=== PATIENT | female | born 1995 | race Caucasian/White ===

== ENCOUNTER 2021-01-30 11:30 | Outpatient (REF) | payer OTHER, SELFPAY | END 2021-01-30 11:31 | disposition home or self-care (01) | LOC: HO.LAB 11:30 | PROVIDERS: Visit Provider Internal Medicine | DX: Z20.822 Contact with and (suspected) exposure to COVID-19 (principal) | CPT/HCPCS: C9803; U0003; U0005 ==

== ENCOUNTER 2021-07-14 10:17 | Emergency (ER) | payer OTHER, SELFPAY ==
--- NOTE | ~2021-07-14 | US_ITS ---
EXAMINATION: US ABDOMEN LIMITED CLINICAL INFORMATION: Right upper quadrant pain. COMPARISON: None TECHNIQUE: Real-time imaging of the gallbladder FINDINGS: The gallbladder is normal in size. No gallstones are seen. The gallbladder wall is normal. There is no pericholecystic fluid. Common bile duct is normal in caliber measuring 0.2 cm. US/US abdomen limited IMPRESSION: Normal gallbladder.
[2021-07-14 10:49] VITALS: BP 111/69; PULSE 90; RESP 18; TEMP 36.7; O2SAT 99; BMI 22.1
[2021-07-14 10:54] VITALS: BP 111/69; PULSE 90; RESP 16; TEMP 36.7; O2SAT 97
[2021-07-14] MEDS: Magnesium Hydrox/Alum Hydrox 30 ML ORAL.SUSP PO (11:47)
[2021-07-14 12:14] LABS: MANUAL DIFF FLAG NO
[2021-07-14 12:20] LABS: Basophils Percent Auto 0.3 % (0-2); Eosinophils Percent Auto 0.6 % (0-4); Hematocrit 35.1 % (37.0-47.0); Hemoglobin 11.6 g/dl (12.0-16.0); Imm Gran Abs Auto 0.02 X10*3/uL (0.00-0.03); Imm Gran Pct Auto 0.3 % (0.0-0.4); Lymphocytes Absolute Auto 1.8 X10*3/uL (1.2-4.9); Lymphocytes Percent Auto 25.3 % (20-40); Mean Corpuscular Hemoglobin 28.3 pg (27.0-33.0); Mean Corpuscular Volume 85.6 fL (80.0-98.0); Mean Platelet Volume 9.8 fL (9.4-12.3); Monocytes Absolute Auto 0.4 X10*3/uL (0.1-1.2); Monocytes Percent Auto 6.1 % (2-11); Neutrophils Absolute Auto 4.9 x10*3/uL (2.0-8.3); Neutrophils Percent Auto 67.4 % (45-73); Platelet Count 267 X10*3/uL (160-400); Red Cell Distribution Width 13.5 % (11.0-16.0); White Blood Count 7.2 X10*3/uL (4.8-10.8)
[2021-07-14 12:34] LABS: Alanine Aminotransferase 20 U/L (0-31); Albumin Level 3.7 g/dL (3.5-5.0); Alkaline Phosphatase 63 U/L (39-117); Anion Gap 12 (12-20); Aspartate Amino Transferase 21 U/L (5-31); Bilirubin Direct < 0.2 mg/dL (0.0-0.5); Bilirubin Total 0.2 mg/dL (0.0-1.0); Blood Urea Nitrogen 5 mg/dL (9-16); Carbon Dioxide 24 mmol/L (22-29); Chloride 108 mmol/L (96-108); Creatinine Clr Calc Pharmacy 118.7; Estimated Glomerular Filt Rate > 60; Glucose Random 94 mg/dL (60-115); Lipase 18 U/L (8-78); Potassium 3.6 mmol/L (3.3-5.1); Sodium 140 mmol/L (135-145); Total Protein 6.6 g/dL (6.5-8.0)
--- NOTE | 2021-07-14 12:34 | ED.ABDPAIN ---
HPI - Abdominal Pain General Chief Complaint: Abdominal Pain Stated Complaint: Abd pain Time Seen by Provider: 07/14/21 11:08 Source: patient Mode of arrival: ambulatory History of Present Illness HPI narrative: 25-year-old female with no significant past medical history presenting to the ED complaining of mid abdominal pain / cramping intermittently x1 week. Admits to associated nausea and diarrhea. Admits symptoms worse after eating. Denies fever, chills, vomiting, constipation, dysuria/ hematuria, vaginal bleeding / discharge MD elicited complaint: abdominal pain Onset (ago): week(s) Related Data Allergies Allergy/AdvReac Type Severity Reaction Status Date / Time Penicillins [PENICILLINS] Allergy Unknown RASH Unverified 11/22/19 16:37 Review of Systems Review of Systems Constitutional: No Fever, No Chills, No Fatigue, No Malaise ENT/Mouth: No Ear Pain, No Nasal Congestion, No Sinus Pain, No sore throat, No Rhinorrhea, No Swallowing Difficulty Eyes: No Eye Pain, No Swelling, No Redness, No Foreign Body, No Discharge, No Vision Changes Cardiovascular: No Chest Pain, No SOB, No Edema, No Palpitations Respiratory: No Cough, No Dyspnea Gastrointestinal: + Nausea, No Vomiting, No Diarrhea, No Constipation, + Abdominal pain Genitourinary: No irregular bleeding, No Dysuria, No Urinary Frequency, No Hematuria, No Urinary Incontinence/retention, No Flank Pain Musculoskeletal: No joint pain, No Myalgias, No Joint Swelling Skin: No Skin Lesions, No rash Neuro: No Weakness, No Dizziness, No Headache Yes all other systems are reviewed and are negative [facility] Past Medical History Attestation statement: The following information was validated with the patient. Social History Social History Advance Directives: No Advance Directives Information Provided: No Physical Exam ED Vital Signs: Vital Signs - 24 hr 07/14/21 10:49 07/14/21 10:54 Temperature 98.0 F 98.0 F Pulse Rate 90 90 Respiratory Rate 18 16 Blood Pressure 111/69 111/69 Pulse Oximetry 99 97 BMI result Body Mass Index 22.1 Const General: cooperative, healthy appearing and no acute distress Orientation/consciousness: patient oriented x3 Limitations: no limitations HENMT Head: Yes normal to inspection and Yes atraumatic Ears: hearing grossly normal bilaterally General nose exam: Normal external nose present Face and sinus: Yes normal facial exam Eyes General: appearance normal, both eyes and all related structures EOM: EOMs intact bilaterally Neck Neck: Yes normal visual inspection and Yes no meningeal signs Resp Effort & Inspection: normal respiratory effort and no respiratory distress Auscultation: clear to auscultation bilaterally Cardio Rate: regular rate Heart sounds: S1 normal heart sound present and S2 normal heart sound present GI Inspection: Yes normal to inspection Palpation (GI): Soft to palpation, Tenderness to palpation present (GI) in the RUQ, no guarding and not rigid General: Yes no CVA tenderness Back/Spine/Pelvis Back: no CVA tenderness Skin Rashes: no rashes Wounds: no wounds Neuro General: patient oriented x3, tone normal and no meningeal signs Gait exam (Neuro): Normal gait present Extrem General: Yes normal to inspection Course Course Course Narrative: - no leukocytosis. Labs otherwise unremarkable. US abdomen limited IMPRESSION: Normal gallbladder. >> results discussed with patient including worrisome signs and symptoms and strict return precautions and need to follow-up with PCP. She verbalized understanding feel safe discharge home MDM - Abdominal Pain MDM Narrative Medical decision making narrative: 25-year-old female with no significant past medical history presenting to the ED complaining of mid abdominal pain / cramping intermittently x1 week. on exam vital signs stable, NAD/ nontoxic appearing, abdomen soft with RUQ tenderness, no rebound or guarding no CVA tenderness. Concern for cholelithiasis vs cholecystitis vs pancreatitis. Lower concern for renal stone/pyelo, UTI, appendicitis or diverticulitis Plan: Labs, UA, , ultrasound Differential Diagnosis Differential diagnosis: Likely abdominal pain and pancreatitis Medical Records Attestation: I reviewed the patient's medical records. Lab Data Attestation: I reviewed the patient's lab results. Result diagrams: 07/14/21 12:09 07/14/21 12:09 Labs: Lab Results 07/14/21 07/14/21 Range/Units 12:09 12:09 WBC 7.2 (4.8-10.8) X10*3/uL RBC 4.10 L (4.20-5.50) X10*6/uL Hgb 11.6 L (12.0-16.0) g/dl Hct 35.1 L (37.0-47.0) % MCV 85.6 (80.0-98.0) fL MCH 28.3 (27.0-33.0) pg MCHC 33.0 (31.0-35.0) g/dl RDW 13.5 (11.0-16.0) % Plt Count 267 (160-400) X10*3/uL MPV 9.8 (9.4-12.3) fL Immature Gran % (Auto) 0.3 (0.0-0.4) % Neut % (Auto) 67.4 (45-73) % Lymph % (Auto) 25.3 (20-40) % Hardeman % (Auto) 6.1 (2-11) % Eos % (Auto) 0.6 (0-4) % Baso % (Auto) 0.3 (0-2) % Lymph # (Auto) 1.8 (1.2-4.9) X10*3/uL Hardeman # (Auto) 0.4 (0.1-1.2) X10*3/uL Eos # (Auto) 0.0 (0.0-0.4) X10*3/uL Baso # (Auto) 0.0 (0.0-0.2) X10*3/uL Abs Immat Gran (auto) 0.02 (0.00-0.03) X10*3/uL Absolute Neuts (auto) 4.9 (2.0-8.3) x10*3/uL Absolute Nucleated RBC 0.000 (0.0-0.012) X10*3/uL Nucleated RBC % (auto) 0.0 (0.0-0.2) /100WBC Sodium 140 (135-145) mmol/L Potassium 3.6 (3.3-5.1) mmol/L Chloride 108 (96-108) mmol/L Carbon Dioxide 24 (22-29) mmol/L Anion Gap 12 (12-20) BUN 5 L (9-16) mg/dL Creatinine 0.69 (0.5-1.4) mg/dL Estim Creat Clear Calc 118.7 Estimated GFR > 60 Random Glucose 94 (60-115) mg/dL Calcium 9.0 (8.4-10.2) mg/dL Total Bilirubin 0.2 (0.0-1.0) mg/dL Direct Bilirubin < 0.2 (0.0-0.5) mg/dL AST 21 (5-31) U/L ALT 20 (0-31) U/L Alkaline Phosphatase 63 (39-117) U/L Total Protein 6.6 (6.5-8.0) g/dL Albumin 3.7 (3.5-5.0) g/dL Lipase 18 (8-78) U/L Discharge Plan Discharge Clinical Impression: Abdominal pain Qualifiers: Abdominal location: right upper quadrant Qualified Code(s): R10.11 - Right upper quadrant pain Patient Disposition: Home, Self-Care Instructions: Abdominal Pain (ED) Additional Instructions: your blood work and ultrasound were unremarkable. It is very important to follow-up with her primary care doctor. Zofran as antinausea take as needed. If symptoms persist or worsen, pain becomes constant or unbearable, or you have persistent nausea or vomiting please return to the ED Referrals: Physician,None [Primary Care Provider] - 5 days
[2021-07-14 13:30] VITALS: BP 108/66; PULSE 81; RESP 16; TEMP 36.8; O2SAT 99
[2021-07-14] MEDS: Ondansetron ODT 4 MG TAB.RAPDIS TRANSLINGU (13:33)
== END 2021-07-14 13:38 | disposition home or self-care (01) ==
PROVIDERS: Physician Assistant; Emergency Provider Emergency Medicine
DX: R10.11 Right upper quadrant pain (principal); Z79.899 Other long term (current) drug therapy
CPT/HCPCS: 36415; 76705; 80048; 80076; 83690; 85025; 99284

== ENCOUNTER 2022-03-07 12:34 | Emergency (ER) | payer OTHER, SELFPAY ==
[2022-03-07 12:42] VITALS: BP 126/71; PULSE 100; RESP 19; TEMP 36.6; O2SAT 99; BMI 19.0
--- NOTE | 2022-03-07 12:43 | ED.GENADULT ---
HPI - General Adult General Chief complaint: Upper Respiratory Symptoms <ROSA Remy - Last Filed: 03/07/22 12:43> Stated complaint: sore throat <ROSA Remy - Last Filed: 03/07/22 12:43> Time Seen by Provider: 03/07/22 12:49 <ROSA Remy - Last Filed: 03/07/22 12:43> Source: patient <Cheryl Ramirez NP - Last Filed: 03/07/22 14:20> Mode of arrival: ambulatory <Cheryl Ramirez NP - Last Filed: 03/07/22 14:20> Limitations: no limitations <ANNETTE Horta Last Filed: 03/07/22 14:20> History of Present Illness HPI narrative: 26-year-old female previously healthy, up-to-date with immunizations here with 2 days of sore throat and headache. No fevers, cough, difficulty swallowing, difficulty breathing, chest pain, headache, neck pain or neck stiffness, skin rash. <ANNETTE Horta Last Filed: 03/07/22 14:20> Related Data Home medications: Previous Rx's Medication Instructions Recorded ondansetron 4 mg disintegrating 4 mg PO Q8H 4 days #12 tabs 07/14/21 tablet azithromycin 250 mg tablet See Rx Instructions PO .COMPLEX #6 03/07/22 tabs <ROSA Remy - Last Filed: 03/07/22 12:43> Allergies/adverse reactions: Allergies Allergy/AdvReac Type Severity Reaction Status Date / Time Penicillins [PENICILLINS] Allergy Unknown RASH Unverified 11/22/19 16:37 <ROSA Remy - Last Filed: 03/07/22 12:43> Review of Systems Review of Systems: Yes all other systems are reviewed and are negative <ANNETTE Horta Last Filed: 03/07/22 14:20> Constitutional: Constitutional: Reports no additional constitutional complaints, Denies body ache(s), Denies chills, Denies fever(s), Reports headache(s) and Denies weakness <ANNETTE Horta Last Filed: 03/07/22 14:20> Eyes: Eyes: Reports no additional eye complaints and Denies change in vision <Cheryl Ramirez NP - Last Filed: 03/07/22 14:20> ENT: Reports system reviewed and no additional complaints, except as documented, Denies dizziness, Reports headache(s), Denies nasal congestion, Denies nasal discharge, Denies neck pain and Reports sore throat <Cheryl Ramirez [employer]ICE - Last Filed: 03/07/22 14:20> Cardiovascular: Cardiovascular: Reports no additional cardiovascular complaints, Denies chest pain, Denies leg edema and Denies dyspnea <Cheryl Ramirez [employer]ICE - Last Filed: 03/07/22 14:20> Respiratory: Respiratory: Reports no additional respiratory complaints, Denies cough and Denies dyspnea <Cheryl Ramirez NP - Last Filed: 03/07/22 14:20> Gastrointestinal: Gastrointestinal: Reports no additional gastrointestinal complaints, Denies abdominal pain, Denies diarrhea, Denies nausea and Denies vomiting <Cheryl Ramirez NP - Last Filed: 03/07/22 14:20> Genitourinary: Genitourinary: Reports no additional female genitourinary complaints and Denies urinary incontinence <Cheryl Ramirez NP - Last Filed: 03/07/22 14:20> Musculoskeletal: Musculoskeletal: Reports no additional musculoskeletal complaints, Denies back pain, Denies arthralgias, Denies joint swelling, Denies neck pain, Denies numbness and Denies tingling <Cheryl Ramirez NP - Last Filed: 03/07/22 14:20> Integumentary/Breasts: Skin/Breast: Reports system reviewed and no additional complaints, except as docu and Denies rash <Cheryl Ramirez NP - Last Filed: 03/07/22 14:20> Neurologic: Reports system reviewed and no additional complaints, except as documented, Denies dizziness, Reports headache(s), Denies numbness, Denies tingling and Denies weakness <Cheryl Ramirez NP - Last Filed: 03/07/22 14:20> PMFSH Past Medical History Attestation statement: The following information was validated with the patient. <Cheryl Ramirez NP - Last Filed: 03/07/22 14:20> Source: old records reviewed and nursing notes reviewed <Cheryl Ramirez NP - Last Filed: 03/07/22 14:20> Social History Social History: Social History Advance Directives: No Advance Directives Information Provided: Yes <ROSA Remy - Last Filed: 03/07/22 12:43> Physical Exam ED Vital Signs: Vital Signs - 24 hr 03/07/22 12:42 Temperature 98 F Pulse Rate 100 Respiratory Rate 19 Blood Pressure 126/71 Pulse Oximetry 99 Oxygen Delivery Method Room Air BMI result Body Mass Index 19.0 <ROSA Remy - Last Filed: 03/07/22 12:43> Vital Signs - 24 hr 03/07/22 12:42 Temperature 98 F Pulse Rate 100 Respiratory Rate 19 Blood Pressure 126/71 Pulse Oximetry 99 Oxygen Delivery Method Room Air BMI result Body Mass Index 19.0 <Cheryl Ramirez NP - Last Filed: 03/07/22 14:20> Const General: cooperative, healthy appearing, comfortable and no acute distress <Cheryl Ramirez NP - Last Filed: 03/07/22 14:20> Orientation/consciousness: patient oriented x3 <Cheryl Ramirez NP - Last Filed: 03/07/22 14:20> Limitations: no limitations <Cheryl Ramirez NP - Last Filed: 03/07/22 14:20> HENMT Head: Yes normal to inspection <Cheryl Ramirez NP - Last Filed: 03/07/22 14:20> Ears: hearing grossly normal bilaterally and TM's normal bilaterally <Cheryl Ramirez NP - Last Filed: 03/07/22 14:20> General nose exam: Normal external nose present <Cheryl Ramirez NP - Last Filed: 03/07/22 14:20> Throat: Yes posterior oropharynx normal, Yes uvula midline, Yes abnormal tonsil (slight erythema/swelling bilateral. No exudate) and No peritonsillar mass <Cheryl Ramirez NP - Last Filed: 03/07/22 14:20> Eyes General: appearance normal, both eyes and all related structures <Cheryl Ramirez NP - Last Filed: 03/07/22 14:20> Pupils: Equal, round and reactive pupils present <Cheryl Ramirez NP - Last Filed: 03/07/22 14:20> Neck Neck: Yes normal visual inspection, Yes full ROM, Yes no lymphadenopathy and Yes no meningeal signs <Cheryl Ramirez NP - Last Filed: 03/07/22 14:20> Chest Chest palpation & inspection: normal inspection of the chest <Cheryl Ramirez NP - Last Filed: 03/07/22 14:20> Resp Effort & Inspection: normal respiratory effort <Cheryl Ramirez NP - Last Filed: 03/07/22 14:20> Cardio Peripheral pulses: Peripheral pulses 2+ throughout <Cheryl Ramirez NP - Last Filed: 03/07/22 14:20> GI Inspection: Yes normal to inspection <Cheryl Ramirez NP - Last Filed: 03/07/22 14:20> Skin General skin exam: no rashes or lesions noted <Cheryl Ramirez NP - Last Filed: 03/07/22 14:20> Neuro General: patient oriented x3 and no meningeal signs <Cheryl Ramirez NP - Last Filed: 03/07/22 14:20> Cranial nerves: Yes Equal, round and reactive pupils present <Cheryl Ramirez NP - Last Filed: 03/07/22 14:20> Cognition (Neuro): normal cognition <Cheryl Ramirez NP - Last Filed: 03/07/22 14:20> Course Course Course Narrative: RME performed by Noemi Awad PA-C. Patient is a 26 year old female presenting to the emergency department with a sore throat. Swabs ordered. Patient placed back in the waiting room pending results and room availability. <ROSA Remy Last Filed: 03/07/22 12:43> Reevaluation(s) Reevaluation #1: Strep screen positive. No evidence of peritonsillar abscess on exam. No swelling this suggest Dez's angina. Patient tolerating secretions with no difficulty. Patient be discharged home with course of antibiotics. Reviewed worrisome signs and symptoms of when to return to the emergency room. Comfortable plan for discharge home. <Cheryl Ramirez NP - Last Filed: 03/07/22 14:20> Medical Decision Making Medical Decision Making [facility] Narrative: 26-year-old female here with 2 days of sore throat and headache. Vitals stable Mild erythema and swelling to posterior oropharynx with no evidence of exudate or peritonsillar abscess. Uvula is midline. Patient tolerating secretions Will send testing for strep, flu, COVID, RSV <Cheryl Ramirez NP - Last Filed: 03/07/22 14:20> Differential Diagnosis Differential Diagnoses: The differential diagnosis associated with the presentation includes <Cheryl Ramirez NP - Last Filed: 03/07/22 14:20> Viral syndrome, strep pharyngitis, peritonsillar abscess, Dez's angina <Cheryl Ramirez NP - Last Filed: 03/07/22 14:20> Lab Data [facility] Lab Attestation statement: I reviewed the patient's lab results. <Cheryl Ramirez NP - Last Filed: 03/07/22 14:20> Labs: Lab Results 03/07/22 03/07/22 Range/Units 12:47 12:47 Influenza Type A (PCR) NEGATIVE (Negative) Influenza Type B (PCR) NEGATIVE (Negative) RSV RNA Qual (PCR) NEGATIVE (Negative) SARS-CoV-2 RNA (RT-PCR) NEGATIVE (Negative) S. pyogenes GrpA BALTAZAR Positive A (Negative) <ROSA Remy - Last Filed: 03/07/22 12:43> Lab Results 03/07/22 03/07/22 Range/Units 12:47 12:47 Influenza Type A (PCR) NEGATIVE (Negative) Influenza Type B (PCR) NEGATIVE (Negative) RSV RNA Qual (PCR) NEGATIVE (Negative) SARS-CoV-2 RNA (RT-PCR) NEGATIVE (Negative) S. pyogenes GrpA BALTAZAR Positive A (Negative) <Cheryl Ramirez NP - Last Filed: 03/07/22 14:20> Prescription Management I considered prescription management with: Antibiotic <Cheryl Ramirez NP - Last Filed: 03/07/22 14:20> Strep screen positive. Patient with allergy to penicillin so will prescribe azithromycin for 5 days. <Cheryl Ramirez NP - Last Filed: 03/07/22 14:20> Discharge Plan Discharge Clinical Impression: Pharyngitis <ROAS Remy - Last Filed: 03/07/22 12:43> Patient Disposition: Home, Self-Care <ROSA Remy - Last Filed: 03/07/22 12:43> Instructions: Pharyngitis (ED) <ROSA Remy - Last Filed: 03/07/22 12:43> Additional Instructions: Testing for strep throat was positive Testing for flu, COVID, RSV are negative Take Motrin or Tylenol for pain or fever Increase fluids, rest <ROSA Remy - Last Filed: 03/07/22 12:43> Prescriptions: New azithromycin 250 mg tablet See Rx Instructions .ROUTE .COMPLEX Qty: 6 0RF Rx Instructions: For 250 mg dose pack: take 500 mg today (day 1), then 250 mg for 4 days (days 2-5) No Action ondansetron 4 mg tablet,disintegrating 4 mg PO Q8H 4 Days Qty: 12 0RF <ROSA Remy - Last Filed: 03/07/22 12:43> Referrals: Physician,Unknown J [Primary Care Provider] - <ROSA Remy - Last Filed: 03/07/22 12:43> Interventions: ED Discharge Assessment Last Done: 03/07/22 14:04 <ROSA Remy - Last Filed: 03/07/22 12:43> Discharge Date/Time: 03/07/22 14:04 <ROSA Remy - Last Filed: 03/07/22 12:43>
[2022-03-07 12:58] LABS: IDNOW Serial# 6674DD1D; Strep A Nucleic Acid Positive (Negative)
[2022-03-07 13:48] LABS: Influenza A PCR NEGATIVE (Negative); Influenza B PCR NEGATIVE (Negative); Resp Syncy Virus RNA Qual PCR NEGATIVE (Negative); SARS COV2 PCR INHOUSE NEGATIVE (Negative)
== END 2022-03-07 14:04 | disposition home or self-care (01) ==
PROVIDERS: Physician Assistant Medical; Emergency Provider Emergency Medicine
DX: J02.8 Acute pharyngitis due to other specified organisms (principal); R51.9 Headache, unspecified; Z20.822 Contact with and (suspected) exposure to COVID-19; Z79.899 Other long term (current) drug therapy
CPT/HCPCS: 0241U; 87651; 99282

== ENCOUNTER 2022-10-24 12:33 | Emergency (ER) | payer OTHER, SELFPAY ==
[2022-10-24 12:53] VITALS: BP 125/71; PULSE 76; RESP 18; TEMP 36.6; O2SAT 100; BMI 19.4
--- NOTE | 2022-10-24 12:58 | ED_ITS ---
HPI - Female Genitourinary General Chief complaint: Urogenital-Female Stated complaint: ? UTI Time Seen by Provider: 10/24/22 13:52 Source: patient Mode of arrival: ambulatory Limitations: no limitations History of Present Illness HPI Narrative: Patient is a 27-year-old female presenting to the emergency department with dysuria and hematuria since this morning, reports also has nausea and vomited once this morning. Denies fevers. Denies any abdominal, back, flank pain. Denies any abnormal vaginal discharge, denies concern for STIs. MD elicited complaint: dysuria Onset (ago): hour(s) Vaginal discharge: none Vaginal bleeding: none Urinary symptoms: Dysuria and Hematuria Exacerbating factors: urination Relieving factors: none Associated symptoms: vomiting Treatment prior to arrival: none Sexual activity: Yes Patient : No Related Data Previous Rx's Medication Instructions Recorded ondansetron 4 mg disintegrating 4 mg PO Q8H PRN nausea and 04/08/22 tablet vomiting #30 tabs nitrofurantoin macrocrystal 100 mg 100 mg PO BID #10 caps 10/24/22 capsule ondansetron 4 mg disintegrating 4 mg PO Q8H PRN nausea and 10/24/22 tablet vomiting #10 tabs Allergies Allergy/AdvReac Type Severity Reaction Status Date / Time Penicillins [PENICILLINS] Allergy Unknown RASH and Unverified 04/08/22 11:21 SWELLING, including skin and throat Review of Systems Review of Systems: As per HPI. Yes all other systems are reviewed and are negative Constitutional: Constitutional: Reports as per HPI [facility] Past Medical History Medical History (Updated 10/24/22 @ 14:29 by Heike aPrker NP) No pertinent past medical history Surgical History (Updated 04/08/22 @ 11:21 by Kishan Peters MD) No pertinent past surgical history Family History Family History (Updated 04/08/22 @ 11:22 by Kishan Peters MD) Mother Gestational diabetes Social History Social History (Updated 04/08/22 @ 11:22 by Kishan Peters MD) Alcohol intake: never Patient Tobacco Use Status: Never used Tobacco Advance Directives: No Advance Directives Information Provided: No Patient : No Physical Exam Vital Signs: Vital Signs: Last Vital Signs Temp 97.9 F 10/24/22 12:53 Pulse 76 10/24/22 12:53 Resp 18 10/24/22 12:53 BP 125/71 10/24/22 12:53 Pulse Ox 100 10/24/22 12:53 O2 Del Method Room Air 10/24/22 12:53 BMI result Body Mass Index 19.4 Vital signs have been reviewed and appear to be correct. Blood pressure normal. Heart rate normal. Respiratory rate normal. Temperature normal. Oxygen saturation normal. Const: General: cooperative, healthy appearing and no acute distress Orientation/consciousness: oriented to person, oriented to place, oriented to time and patient oriented x3 Limitations: no limitations HEENT: Head: Yes normocephalic and Yes atraumatic Ears: external ears normal General nose exam: Normal external nose present Face and sinus: Yes face symmetric Mouth: oropharynx normal and moist mucous membranes Throat: Yes uvula midline Eyes: Pupils: Equal, round and reactive pupils present Neck: Neck: Yes normal visual inspection and Yes supple Resp: Effort & Inspection: normal respiratory effort and able to speak in complete sentences Auscultation: clear to auscultation bilaterally Cardio: Rate: regular rate Rhythm: regular rhythm Heart sounds: S1 normal heart sound present and S2 normal heart sound present GI: Palpation (GI): Soft to palpation and nontender Auscultation: normoac tive bowel sounds : General: Yes no CVA tenderness Back/Spine/Pelvis: Back: no CVA tenderness Skin: General skin exam: elasticity normal and turgor normal Neuro: General: oriented to person, oriented to place, oriented to time, patient oriented x3, moves all extremities, no focal motor deficits and CN's II- XI intact bilaterally Cranial nerves: Yes Equal, round and reactive pupils present Cognition (Neuro): normal cognition Extrem: General: Yes full ROM, Yes no pedal edema and Yes no calf tenderness Psych: Mental Status: mental status grossly normal Affect: normal affect Thought process: Normal thought process present Course Course Course Narrative: RME: 27 yold female presents to the ED for dysuria and slight hematuria. patient states no flank pain. uA, urpreg ordered Medical Decision Making Medical Decision Making MDM Narrative: Patient is a 27-year-old female presenting to the emergency department with dysuria and hematuria since this morning, reports also has nausea and vomited once this morning. On exam patient is awake, A+Ox3, VS WNL, afebrile, nontoxic appearing, normal neurological exam without focal deficits, abdomen soft and nontender, no CVA tenderness. Given reported symptoms and physical exam findings, initial differential includes UTI/pyelonephritis, renal calculi, STI. UA positive for 2+ leukocytes, greater than 50 wbc's, 4+ bacteria, positive nitrates. Urine negative. Will treat for UTI at this time with nitrofurantoin as patient has penicillin allergy. Will also prescribe Zofran for nausea. Instructed patient to follow-up with PCP. Return precautions discussed at bedside. Patient verbalized understanding of and agreement with plan. Differential Diagnosis Differential Diagnoses: The differential diagnosis associated with the presentation includes As per [facility]. Lab Data [facility] Lab Attestation statement: I reviewed the patient's lab results. As per [facility]. Labs: Lab Results 10/24/22 10/24/22 Range/Units 13:19 13:19 Urine Color Yellow Urine Appearance Turbid Urine pH 7.0 (5.0-9.0) Ur Specific [place] 1.025 (1.005-1.025) Urine Protein 100 (2+) H (Neg-Trace) mg/dL Urine Glucose (UA) Negative (Negative) mg/dL Urine Ketones Negative (Negative) mg/dL Urine Blood Large (3+) H (Negative) Urine Nitrite Positive H (Negative) Ur Leukocyte Esterase Moderate (2+) H (Negative) Urine RBC >20 H (0-2) /HPF Urine WBC >50 H (0-5) /HPF Ur Squamous Epith Cells 3-5 (0-2) /HPF Urine Bacteria 4+ (None Seen) Hyaline Casts 0-2 (0-2) /LPF Urine Test NEGATIVE (NEGATIVE) External Record Review External record reviewed: Inpatient record, Office record and Outpatient record Prescription Management I considered prescription management with: Antibiotic Discharge Plan Discharge Clinical Impression: Urinary tract infection Patient Disposition: Home, Self-Care Instructions: Urinary Tract Infection in Women (DC) Additional Instructions: You have been evaluated in the emergency department today for your urinary symptoms. Your evaluation, including urinalysis, suggests that your symptoms are due to urinary tract infection. Please take your prescribed antibiotics for the full course of medication as directed. Please follow-up with your primary care provider within 2 days. Return to the emergency department if you experience fevers 100.4? F or greater, worsening or uncontrolled pain, vomiting, flank pain, or for any other concerning symptoms. Prescriptions: New ondansetron 4 mg tablet,disintegrating 4 mg PO Q8H PRN (Reason: nausea and vomiting) Qty: 10 0RF nitrofurantoin macrocrystal 100 mg capsule 100 mg PO BID Qty: 10 0RF Rx Instructions: must administer with a meal/food No Action ondansetron 4 mg tablet,disintegrating 4 mg PO Q8H PRN (Reason: nausea and vomiting) Qty: 30 0RF Interventions: ED Discharge Assessment Last Done: 10/24/22 14:38 Discharge Date/Time: 10/24/22 14:38
[2022-10-24 13:36] LABS: Appearance Urine Turbid; Color Urine Yellow; Glucose Urine UA Negative (Negative); Leukocyte Esterase Urine Moderate (2+) (Negative); Nitrite Urine Positive (Negative); Specific Gravity - Urine 1.025 (1.005-1.025); UMIC TRIGGER UACC YES; Urine Blood Large (3+) (Negative); Urine Ketones Negative (Negative); Urine Protein 100 (2+) mg/dL (Neg-Trace)
[2022-10-24 13:38] LABS: UPreg QC Valid YES; Urine Pregnancy NEGATIVE (NEGATIVE)
[2022-10-24 13:40] LABS: Bacteria Urine 4+ (None Seen); Hyaline Casts Urine 0-2 /LPF (0-2); RBC Urine >20 /HPF (0-2); UACC Culture Trigger YES; WBC Urine >50 /HPF (0-5)
== END 2022-10-24 14:38 | disposition home or self-care (01) ==
PROVIDERS: Physician Assistant; Emergency Provider Emergency Medicine; PCP Internal Medicine
DX: N39.0 Urinary tract infection, site not specified (principal); Z79.899 Other long term (current) drug therapy
CPT/HCPCS: 81001; 81025; 87086; 87088; 87186; 99283

== ENCOUNTER 2023-06-27 21:53 | Emergency (ER) | payer OTHER, SELFPAY ==
[2023-06-27 22:00] VITALS: BP 130/94; PULSE 77; RESP 16; TEMP 36.8; O2SAT 100; BMI 19.4
--- NOTE | 2023-06-27 22:19 | ED.FEMALEGU ---
HPI - Female Genitourinary General Chief complaint: Urogenital-Female Stated complaint: ?uti Time Seen by Provider: 06/27/23 22:13 Source: patient Mode of arrival: ambulatory Limitations: no limitations History of Present Illness HPI Narrative: Patient is a 27-year-old female presenting to the emergency department with complaint of hematuria, urinary urgency and dysuria since this morning. Also complains of nausea but denies vomiting, diarrhea or constipation. She denies fevers. She denies any abdominal, back or flank pain. LMP one week ago. Denies any abnormal vaginal discharge or vaginal bleeding, denies concern for STIs. MD elicited complaint: dysuria and UTI Onset (ago): hour(s) Location of symptoms: urethra Quality of pain: burning Vaginal discharge: none Vaginal bleeding: none Urinary symptoms: Dysuria, Urgency and Hematuria Associated symptoms: denies other symptoms Related Data Previous Rx's ?Medication ?Instructions ?Recorded ondansetron 4 mg disintegrating 4 mg PO Q8H PRN nausea and 04/08/22 tablet vomiting #30 tabs nitrofurantoin macrocrystal 100 mg 100 mg PO BID #10 caps 10/24/22 capsule ondansetron 4 mg disintegrating 4 mg PO Q8H PRN nausea and 10/24/22 tablet vomiting #10 tabs nitrofurantoin macrocrystal 100 mg 100 mg PO BID 5 days #9 caps 06/27/23 capsule phenazopyridine 200 mg tablet 200 mg PO TID PRN pain #5 tabs 06/27/23 Allergies Allergy/AdvReac Type Severity Reaction Status Date / Time Penicillins [PENICILLINS] Allergy Unknown RASH and Verified 06/27/23 22:02 SWELLING, including skin and throat Review of Systems Review of Systems: As per HPI. Yes all other systems are reviewed and are negative Constitutional: Constitutional: Reports as per HPI [facility] Past Medical History Medical History (Updated 06/27/23 @ 23:49 by Heike Parker NP) No pertinent past medical history Surgical History (Updated 04/08/22 @ 11:21 by Kishan Peters MD) No pertinent past surgical history Family History Family History (Updated 04/08/22 @ 11:22 by Kishan Peters MD) Mother Gestational diabetes Social History Social History (Updated 04/08/22 @ 11:22 by Kishan Peters MD) Alcohol intake: never Patient Tobacco Use Status: Never used Tobacco Advance Directives: No Advance Directives Information Provided: No Do you have a plan to hurt others: No Plan Physical Exam Vital Signs: Vital Signs: Last Vital Signs Temp 98.2 F 06/27/23 22:00 Pulse 77 06/27/23 22:00 Resp 16 06/27/23 22:00 BP 130/94 H 06/27/23 22:00 Pulse Ox 100 06/27/23 22:00 O2 Del Method Room Air 06/27/23 22:00 BMI result Body Mass Index 19.4 Vital signs have been reviewed and appear to be correct. Blood pressure elevated. Heart rate normal. Respiratory rate normal. Temperature normal. Oxygen saturation normal. Const: General: cooperative, healthy appearing and no acute distress Orientation/consciousness: oriented to person, oriented to place, oriented to time and patient oriented x3 Limitations: no limitations HEENT: Head: Yes normocephalic and Yes atraumatic Ears: external ears normal General nose exam: Normal external nose present Face and sinus: Yes face symmetric Mouth: oropharynx normal and moist mucous membranes Throat: Yes uvula midline Eyes: Pupils: Equal, round and reactive pupils present Neck: Neck: Yes normal visual inspection and Yes supple Resp: Effort & Inspection: normal respiratory effort and able to speak in complete sentences Auscultation: clear to auscultation bilaterally Cardio: Rate: regular rate Rhythm: regular rhythm Heart sounds: S1 normal heart sound present and S2 normal heart sound present GI: Palpation (GI): Soft to palpation and nontender Auscultation: normoactive bowel sounds : General: Yes no CVA tenderness Back/Spine/Pelvis: Back: no CVA tenderness Skin: General skin exam: elasticity normal and turgor normal Neuro: General: oriented to person, oriented to place, oriented to time, patient oriented x3, moves all extremities, no focal motor deficits and CN's II-XI intact bilaterally Cranial nerves: Yes Equal, round and reactive pupils present Cognition (Neuro): normal cognition Extrem: General: Yes full ROM, Yes no pedal edema and Yes no calf tenderness Psych: Mental Status: mental status grossly normal Affect: normal affect Thought process: Normal thought process present Medical Decision Making Medical Decision Making MDM Narrative: Patient is a 27-year-old female presenting to the emergency department with complaint of hematuria, urinary urgency and dysuria since this morning. On exam patient is awake, A+Ox3, VS WNL, afebrile, normal neurological exam without focal deficits, physical exam findings as above. Given reported symptoms and physical exam findings, initial differential includes UTI, pyelonephritis, vaginitis. Denies concern for STIs and declines testing at this time. Urinalysis notable for 2+ leukocytes, positive nitrites, 3+ blood. Will treat patient for UTI with nitrofurantoin as patient has penicillin allergy and states that her UTI symptoms fully resolved after course of nitrofurantoin in October of 2022. Will also prescribe phenazopyridine for discomfort. Instructed patient to follow-up with primary care provider. Return precautions discussed at bedside. Patient verbalized understanding of and agreement with plan. Differential Diagnosis Differential Diagnoses: The differential diagnosis associated with the presentation includes As per [facility]. Lab Data [facility] Lab Attestation statement: I reviewed the patient's lab results. As per [facility]. Labs: Lab Results 06/27/23 Range/Units 23:16 Urine Color Brown A Urine Appearance Turbid Urine pH 5.5 (5.0-9.0) Ur Specific [place] 1.025 (1.005-1.025) Urine Protein 300 (3+) H (Neg-Trace) mg/dL Urine Glucose (UA) Negative (Negative) mg/dL Urine Ketones Negative (Negative) mg/dL Urine Blood Large (3+) H (Negative) Urine Nitrite Positive H (Negative) Ur Leukocyte Esterase Moderate (2+) H (Negative) Urine Test NEGATIVE (NEGATIVE) External Record Review External record reviewed: Inpatient record, Office record and Outpatient record Prescription Management I considered prescription management with: Pain Medication and Antibiotic Discharge Plan Discharge Clinical Impression: Urinary tract infection Patient Disposition: Home, Self-Care Instructions: Urinary Tract Infection in Women (DC) Additional Instructions: You have been evaluated in the emergency department today for your urinary symptoms. Your evaluation, including urinalysis, suggests that your symptoms are due to urinary tract infection. Please take your prescribed antibiotics for the full course of medication as directed. You are also being prescribed phenazopyridine which you can take as prescribed for discomfort. Please follow-up with your primary care provider within 2 days. Return to the emergency department if you experience fevers 100.4? F or greater, worsening or uncontrolled pain, vomiting, flank pain, or for any other concerning symptoms. Prescriptions: New nitrofurantoin macrocrystal 100 mg capsule 100 mg PO BID 5 Days Qty: 9 0RF Rx Instructions: must administer with a meal/food phenazopyridine 200 mg tablet 200 mg PO TID PRN (Reason: pain) Qty: 5 0RF No Action ondansetron 4 mg tablet,disintegrating 4 mg PO Q8H PRN (Reason: nausea and vomiting) Qty: 10 0RF nitrofurantoin macrocrystal 100 mg capsule 100 mg PO BID Qty: 10 0RF Rx Instructions: must administer with a meal/food ondansetron 4 mg tablet,disintegrating 4 mg PO Q8H PRN (Reason: nausea and vomiting) Qty: 30 0RF Print Language: Tanzanian
[2023-06-27 23:28] LABS: UPreg QC Valid YES; Urine Pregnancy NEGATIVE (NEGATIVE)
[2023-06-27 23:38] LABS: Appearance Urine Turbid; Glucose Urine UA Negative (Negative); Leukocyte Esterase Urine Moderate (2+) (Negative); Nitrite Urine Positive (Negative); PH 5.5 (5.0-9.0); Specific Gravity - Urine 1.025 (1.005-1.025); UMIC TRIGGER UACC YES; Urine Blood Large (3+) (Negative); Urine Ketones Negative (Negative); Urine Protein 300 (3+) mg/dL (Neg-Trace)
[2023-06-27 23:39] LABS: Color Urine Brown
[2023-06-27 23:42] LABS: Bacteria Urine 2+ (None Seen); Hyaline Casts Urine 0-2 /LPF (0-2); RBC Urine >20 /HPF (0-2); UACC Culture Trigger YES; WBC Urine >50 /HPF (0-5)
[2023-06-28] MEDS: Phenazopyridine HCL 200 MG TABLET PO (00:01)
[2023-06-28 00:04] VITALS: BP 116/84; PULSE 68; RESP 16; TEMP 36.6; O2SAT 97
== END 2023-06-28 00:05 | disposition home or self-care (01) ==
PROVIDERS: Emergency Provider Internal Medicine; PCP Internal Medicine
DX: N39.0 Urinary tract infection, site not specified (principal)
CPT/HCPCS: 81001; 81025; 87086; 87088; 87186; 99283

== ENCOUNTER 2023-08-01 21:09 | Emergency (ER) | payer OTHER, SELFPAY ==
[2023-08-01 21:39] VITALS: BP 128/76; PULSE 105; RESP 18; TEMP 37.2; O2SAT 98; BMI 20.8
[2023-08-01 22:18] LABS: IDNOW Serial# 08D9AD1C; Strep A Nucleic Acid Positive (Negative)
[2023-08-01 22:36] LABS: IDNOW Serial# 152EDE1D; Influenza A Negative (Negative); Influenza B2 Negative (Negative)
[2023-08-01 22:37] LABS: COVID-19 Test Negative (Negative); IDNOW Serial# 9DB6401D
--- NOTE | 2023-08-01 23:14 | ED.GENADULT ---
HPI - General Adult General Chief complaint: General Medical Stated complaint: headache, sore throat Time Seen by Provider: 08/01/23 23:11 Source: patient, RN notes reviewed and old records reviewed Mode of arrival: ambulatory Limitations: no limitations History of Present Illness ED Provider: Rosario HPI narrative: 27-year-old female presents for evaluation of a sore throat and a headache. Her symptoms started yesterday. She reports associated cough. Her sister is at home with similar symptoms including a cough Patient has not had any fevers She is able to eat and has pain Related Data Previous Rx's ?Medication ?Instructions ?Recorded ondansetron 4 mg disintegrating 4 mg PO Q8H PRN nausea and 04/08/22 tablet vomiting #30 tabs nitrofurantoin macrocrystal 100 mg 100 mg PO BID #10 caps 10/24/22 capsule ondansetron 4 mg disintegrating 4 mg PO Q8H PRN nausea and 10/24/22 tablet vomiting #10 tabs nitrofurantoin macrocrystal 100 mg 100 mg PO BID 5 days #9 caps 06/27/23 capsule phenazopyridine 200 mg tablet 200 mg PO TID PRN pain #5 tabs 06/27/23 azithromycin 250 mg tablet See Rx Instructions PO .COMPLEX #6 08/01/23 tabs Allergies Allergy/AdvReac Type Severity Reaction Status Date / Time Penicillins [PENICILLINS] Allergy Unknown RASH and Verified 08/01/23 21:42 SWELLING, including skin and throat Review of Systems Constitutional: Constitutional: Denies body ache(s), Denies chills, Denies fever(s) and Reports headache(s) ENT: Reports headache(s) and Reports sore throat Cardiovascular: Cardiovascular: Denies chest pain and Denies dyspnea Respiratory: Respiratory: Denies cough and Denies dyspnea Gastrointestinal: Gastrointestinal: Denies abdominal pain, Denies nausea and Denies vomiting Musculoskeletal: Musculoskeletal: Denies back pain Integumentary/Breasts: Skin/Breast: Denies rash Neurologic: Reports headache(s) [facility], [facility] Past Medical History Medical History (Updated 08/01/23 @ 23:16 by Demian Butcher) No pertinent past medical history Surgical History (Updated 04/08/22 @ 11:21 by Kishan Peters MD) No pertinent past surgical history Family History Family History (Updated 04/08/22 @ 11:22 by Kishan Peters MD) Mother Gestational diabetes Social History Social History (Updated 04/08/22 @ 11:22 by Kishan Peters MD) Alcohol intake: never Patient Tobacco Use Status: Never used Tobacco Advance Directives: No Advance Directives Information Provided: No Do you have a plan to hurt others: No Plan Physical Exam ED Vital Signs: Vital Signs - 24 hr 08/01/23 21:39 Temperature 98.9 F Pulse Rate 105 H Respiratory Rate 18 Blood Pressure 128/76 Pulse Oximetry 98 Oxygen Delivery Method Room Air BMI result Body Mass Index 20.8 Const General: healthy appearing, comfortable, no acute distress, alert and awake Nutritional Appearance: well nourished Orientation/consciousness: patient oriented x3 HENMT Other: Erythematous retropharynx with tonsillar exudates. No evidence of peritonsillar abscess Head: Yes normocephalic and Yes atraumatic Eyes Eyelids: Yes eyelids normal Conjunctivae: conjunctivae normal Sclerae: sclerae normal Corneas: corneas normal Pupils: Equal, round and reactive pupils present EOM: EOMs intact bilaterally Neck Neck: Yes full ROM Resp Effort & Inspection: normal respiratory effort, able to speak in complete sentences, no audible wheezes and not labored Auscultation: clear to auscultation bilaterally Skin General skin exam: elasticity normal Neuro General: patient oriented x3 Cranial nerves: Yes Equal, round and reactive pupils present and Yes Bilaterally intact EOM present Cognition (Neuro): normal cognition Extrem Other: Moving all extremities well without any obvious deformities Medical Decision Making Medical Decision Making MDM Narrative: Bites 27-year-old female presents for evaluation of sore throat and headache. She was positive for strep pharyngitis, there was no evidence of peritonsillar abscess. She is well-appearing, able to tolerate p.o.. She will be discharged with azithromycin given penicillin allergy. Differential Diagnosis Differential Diagnoses: The differential diagnosis associated with the presentation includes Strep pharyngitis Upper respiratory infection Viral syndrome COVID-19 Influenza Lab Data Labs: Lab Results 08/01/23 Range/Units 21:59 COVID-19 (LV) Negative (Negative) COVID-19 Clin Com See Note Influenza Type A (BALTAZAR) Negative (Negative) Influenza Type B (BALTAZAR) Negative (Negative) Influenza A & B Note See Note S. pyogenes GrpA BALTAZAR Positive A (Negative) Discharge Plan Discharge Clinical Impression: Acute streptococcal pharyngitis Patient Disposition: Home, Self-Care Instructions: Strep Throat (ED) Additional Instructions: You tested positive for strep throat. Take azithromycin as prescribed Drink lots of fluids Use ibuprofen/Tylenol for pain Follow-up with your primary doctor Prescriptions: New azithromycin 250 mg tablet See Rx Instructions .ROUTE .COMPLEX Qty: 6 0RF Rx Instructions: For 250 mg dose pack: take 500 mg today (day 1), then 250 mg for 4 days (days 2-5) No Action nitrofurantoin macrocrystal 100 mg capsule 100 mg PO BID 5 Days Qty: 9 0RF Rx Instructions: must administer with a meal/food phenazopyridine 200 mg tablet 200 mg PO TID PRN (Reason: pain) Qty: 5 0RF ondansetron 4 mg tablet,disintegrating 4 mg PO Q8H PRN (Reason: nausea and vomiting) Qty: 10 0RF nitrofurantoin macrocrystal 100 mg capsule 100 mg PO BID Qty: 10 0RF Rx Instructions: must administer with a meal/food ondansetron 4 mg tablet,disintegrating 4 mg PO Q8H PRN (Reason: nausea and vomiting) Qty: 30 0RF Print Language: Cuban
[2023-08-01 23:55] VITALS: BP 119/71; PULSE 87; RESP 16; TEMP 36.2; O2SAT 100
[2023-08-01 23:57] VITALS: BP 119/71; PULSE 87; RESP 16; TEMP 36.2; O2SAT 100
== END 2023-08-01 23:57 | disposition home or self-care (01) ==
PROVIDERS: Emergency Provider Internal Medicine; PCP Internal Medicine
DX: J02.0 Streptococcal pharyngitis (principal); Z88.0 Allergy status to penicillin; Z11.52 Encounter for screening for COVID-19
CPT/HCPCS: 87502; 87635; 87651; 99283; 99284

== ENCOUNTER 2024-01-02 14:38 | Outpatient (AMB) | payer OTHER, SELFPAY ==
--- NOTE | 2024-01-02 14:42 | A.OFFPC_ITS ---
Vital Signs 01/02/24 14:45 Height 5 ft 6 in Weight 127 lb 8 oz BMI 20.6 BP 110/70 Blood Pressure Location Lt brachial Position Sitting Pulse 85 Pulse Source Pulse Oximeter Pulse Oximetry (%) 98 Oxygen Delivery Method Room Air Intake Visit Reasons: OBGYN Referral- Control Intake Note: Patient is here to follow up on [employer] referral for control . Hospital Mortician Required: No Rail Express Clerk: Not Required per policy Accompanied by: Self / Same As Patient Allergies Penicillins [PENICILLINS] Allergy (Unknown, Verified 05/04/24 11:31) RASH and SWELLING, including skin and throat Tobacco use date assessed: 01/02/24 Dental Screening Dental Screen Date: 01/02/24 Did you have a dental visit in the last 12 months?: Yes Did you have a dental problem in the last 6 months where you did not have access to dental care?: No Was dental information given to patient?: Patient has dentist HPI OBGYN Referral- Control HPI Details Patient comes in today mainly to request for a referral for control Adds that she has also been experiencing frequent nasal drainage lately She denies any recent cough/cold symptoms and denies any fever or sore throat Denies any headaches or dizziness Denies any chest pains, no SOB No nausea/vomiting, no abdominal pain No change in bowel habits noted [facility] Medical History No pertinent past medical history Surgical History No pertinent past surgical history Family History Mother Gestational diabetes Social History Housing: Apartment Alcohol intake: never Patient Tobacco Use Status: Never used Tobacco e-Cigarette/Vaping Use: Never Used Second Hand Smoke Exposure: No Substance Use Type: Marijuana service: No Current occupational status: employed 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 1. Little interest or pleasure in doing things: not at all 2. Feeling down, depressed, or hopeless: not at all 3. Trouble falling or staying asleep, or sleeping too much: not at all 4. Feeling tired or having little energy: not at all 5. Poor appetite or overeating: not at all 6. Feeling bad about yourself - or that you are a failure or have let yourself or your family down: not at all 7. Trouble concentrating on things, such as reading the newspaper or watching television: not at all 8. Moving or speaking so slowly that other people could have noticed. Or the opposite - being so fidgety or restless that you have been moving around a lot more than usual: not at all 9. Thoughts that you would be better off or of hurting yourself in some way: not at all Total score: 0 Depression Screening Interpretation: Negative Depression Screening Done: Yes 80105 - PHQ-9 Billing: Yes Source: Developed by Drs. Spenser Ace, Vannesa Gomez, Tylor Torres and colleagues, with an educational miguel from [employer]. Thrive Questionnaire Date Thrive assessed: 01/02/24 I am a: Patient What is your living situation today?: I have a steady place to live Within the past 12 months, did the food you bought not last and you didn't have the money to get more?: Never true Within the past 12 months, did you worry whether your food would run out before you got money to buy more?: Never true Do you have trouble paying for medicines?: No Do you have trouble getting transportation to medical appointments?: No Do you have trouble paying your heating and electricity bill?: No Do you have trouble taking care of your child, family member or friend?: No Do you have trouble with day-to-day activities such as bathing, preparing meals, shopping, managing finances, etc.?: No Are you currently unemployed and looking for a job?: No Are you interested in more education?: No Currently or been in a relationship where the following occur: No concerns reported THRIVE Score: 0 AUDIT C Alcohol Use Questionnaire (AUDIT-C) 1. How often do you have a drink containing alcohol?: Never 3. How often do you have six or more drinks on one occasion?: Never Total Score: 0 Score Reviewed/Action Taken: Yes BRUNO-7 AMB Questionnaire BRUNO-7 Date BRUNO - 7 assessed: 01/02/24 Feeling nervous, anxious, or on edge: 0 = Not at all Not being able to stop or control worryin = Not at all Worrying too much about different things: 0 = Not at all Trouble relaxin = Not at all Being so restless that it is hard to sit still: 0 = Not at all Becoming easily annoyed or irritable: 0 = Not at all Feeling afraid as if something awful might happen: 0 = Not at all Total BRUNO-7 score (0-4 normal; 5-9 mild; 10-14 moderate; 15-21 severe): 0 Source: Developed by Drs. Spenser Ace, Vannesa Gomez, Tylor Torres and colleagues, with an educational miguel from [employer]. Review of Systems Const Denies chills, Denies fatigue, Denies fever(s) and Denies headache(s) ENT Denies dysphagia, Denies dizziness, Denies headache(s), Reports nasal discharge (clear), Denies neck pain, Denies odynophagia and Denies sore throat Card Denies chest pain, Denies palpitations and Denies dyspnea Resp Denies chest congestion, Denies cough and Denies dyspnea GI Denies abdominal pain, Denies constipation, Denies dysphagia, Denies heartburn, Denies diarrhea, Denies nausea, Denies odynophagia and Denies vomiting Denies difficulty voiding, Denies nocturia and Denies dysuria Musc Denies back pain and Denies neck pain Skin/Breast Denies rash Neuro Denies dizziness and Denies headache(s) Endo Denies fatigue and Denies palpitations Physical exam (Primary Care) Vital Signs: Last Vital Signs Pulse 85 01/02/24 14:45 BP 110/70 01/02/24 14:45 Pulse Ox 98 01/02/24 14:45 Oxygen Delivery Method Room Air 01/02/24 14:45 BMI result Body Mass Index 20.6 Tobacco/Smoking Status: Tobacco use Status Tobacco use date assessed 01/02/24 01/02/24 14:50 Patient Tobacco Use Status Never used Tobacco 01/02/24 14:50 e-Cigarette/Vaping Use Never Used 01/02/24 14:50 PHQ-9: PHQ-9 Score PHQ-9: Total score 0 01/02/24 15:12 Depression Screening Interpretation: Negative Thrive Assessment: Date of Thrive Assessment Date Thrive assessed 01/02/24 01/02/24 14:50 Currently or been in a relationship where the following occur: No concerns reported Const General: no acute distress and alert [facility] General nose exam: Nasal discharge present clear bilateral Throat: Yes posterior oropharynx normal and Yes tonsils normal Neck Neck: Yes supple and No lymphadenopathy Thyroid: Thyroid normal Resp Auscultation: clear to auscultation bilaterally, no rales and no wheezes Cardio Rate: regular rate Rhythm: regular rhythm Heart sounds: no murmurs GI Palpation (GI): Soft to palpation and nontender Auscultation: normal bowel sounds Extrem General: Yes no clubbing, cyanosis or edema Coding Level of Care Code Est Pt Level 3 (26936) Diagnoses Rhinitis, unspecified type J31.0 Rhinitis type: unspecified control counseling Z30. Assessment & Plan Assessment & Plan (1) Rhinitis: Code(s): J31.0 - Chronic rhinitis Category: Medical Qualifiers: Rhinitis type: unspecified Qualified Code(s): J31.0 - Chronic rhinitis Plan: This is likely allergic vs. vasomotor Will start her on a trial of Loratadine 10 mg QD PRN (2) control counseling: Code(s): Z30. - Encounter for other general counseling and advice on contraception Category: Medical Plan: Per request[facility] and BC counseling and initiation if appropriate Have discussed briefly with patient available forms of contraception and she wishes to just start on the pill forms for now Plan To return in 4 months for her annual physical examination She is instructed to get her labs (ordered) done just before she comes in for her appointment in 4 months Orders: Orders TSH reflex Free T4 04/07/24 E78.00 - Pure hypercholesterolemia, unspecified, Z00. - Encounter for general adult medical examination without abnormal findings Comprehensive Met. Panel 04/07/24 Z00. - Encounter for general adult medical examination without abnormal findings Vitamin D 25-OH Total 04/07/24 E55.9 - Vitamin D deficiency, unspecified, Z00. - Encounter for general adult medical examination without abnormal findings Complete Blood Count Auto Diff 04/07/24 D64.9 - Anemia, unspecified, Z00.00 - Encounter for general adult medical examination without abnormal findings UA CC w/rflx Micro + Cult 04/07/24 R30.0 - Dysuria, Z00.00 - Encounter for general adult medical examination without abnormal findings Cholesterol 04/07/24 Z00.00 - Encounter for general adult medical examination without abnormal findings Referrals [employer] Referral Z12.4 - Encounter for screening for malignant neoplasm of cervix, Z30.011 - Encounter for initial prescription of contraceptive pills, Z3 0.09 - Encounter for other general counseling and advice on contraception Medications: New loratadine 10 mg PO DAILY PRN 90 tabs 3RF allergy symptoms 90 days J30.9 - Allergic rhinitis, unspecified
[2024-01-02 14:45] VITALS: BP 110/70; PULSE 85; O2SAT 98; BMI 20.6
== END 2024-01-02 15:15 | disposition home or self-care (01) ==
LOC: HO.HMCH 14:39
PROVIDERS: PCP Internal Medicine; Visit Provider Internal Medicine
DX: J31.0 Chronic rhinitis (principal); Z30.09 Encounter for other general counseling and advice on contraception

== ENCOUNTER → 2024-01-02 14:38 | Outpatient (BNVA) | payer OTHER, SELFPAY | PROVIDERS: PCP Internal Medicine; Visit Provider Internal Medicine ==

== ENCOUNTER 2024-04-12 12:25 | Outpatient (REF) | payer OTHER, SELFPAY ==
--- OUTSIDE RECORDS SUMMARY | 2024-04-12 13:27 | XMS_ITS | Encounter Summary ---
Author Organization [facility] Address [address] [place] [address] Phone Care Team Providers Care Brick Tender Name Role Phone Paula Hardin MD Primary Care Provider [phone] Encounter Details Date Type Department Care Team (Late st Contact Info) Description 05/04/2011 Documentation EM Family Medicine [address] [place] [address] Family Medicine, Physician [address] [place], [place] [phone] Social History Tobacco Use Types Packs/Day Years [...] on filedocumented in this encounter Care Teams Brick Tender Relationship Specialty Start Date End Date Paula Hardin MD [address] [place] [address] MELINA Pedroza [id number] PCP - General 10/15/16 08/26/22 documented as of this encounter
--- OUTSIDE RECORDS SUMMARY | 2024-04-12 13:27 | XMS_ITS | Encounter Summary ---
Author Organization [facility] Address [address] [place] [address] Phone Care Team Providers Care Comfort Station Supervisor Name Role Phone Paula Hardin MD Primary Care Provider [phone] Encounter Details Date Type Department Care Team (Late st Contact Info) Description 10/21/2016 Conversion Encounter [facility] [place] [address] [place], [place] [phone] Social History Tobacco Use Types Packs/Day Years [...] on filedocumented in this encounter Care Teams Comfort Station Supervisor Relationship Specialty Start Date End Date Paula Hardin MD [address] [place] [address] PCP - General 10/15/16 08/26/22 documented as of this encounter
--- OUTSIDE RECORDS SUMMARY | 2024-04-12 13:27 | XMS_ITS | Clinical Summary ---
Author Organization [facility] Address [address] [place] [id number] Phone Care Team Providers Care Musician Instrumental Name Role Phone Unavailable Primary Care Provider [...]
== END 2024-04-12 12:26 | disposition home or self-care (01) ==
LOC: HO.LAB 12:25
PROVIDERS: PCP Internal Medicine; Visit Provider Advanced Practice Midwife
DX: Z13.89 Encounter for screening for other disorder (principal)

== ENCOUNTER → 2024-04-12 12:25 | Outpatient (AMB) | payer OTHER, SELFPAY ==
--- OUTSIDE RECORDS SUMMARY | 2024-04-12 12:27 | XMS_ITS | Encounter Summary ---
Author Organization [facility] Address [address] [place] [address] Phone Care Team Providers Care Metal Alloy Scientist Name Role Phone Paula Hardin MD Primary Care Provider [phone] Encounter Details Date Type Department Care Team (Late st Contact Info) Description 05/04/2011 Documentation EM Family Medicine [address] [place] [address] Family Medicine, Physician [address] [place], [place] [id number] Social History Tobacco Use Types Packs/Day Years Used Date Smoking Tobacco: Never Assessed Comments Unknown Sex and Gender Information Value Date Recorded Sex Assigned at Not on file Legal Sex Female 4:39 PM EDT Gender Identity Not on file Sexual Orientation Not on file documented as of this encounter Plan of Treatment Not on file documented as of this encounter Visit Diagnoses Not on filedocumented in this encounter Care Teams Metal Alloy Scientist Relationship Specialty Start Date End Date Paula Hardin MD [address] [place] [address] MELINA Pedroza [id number] PCP - General 10/15/16 08/26/22 documented as of this encounter
--- OUTSIDE RECORDS SUMMARY | 2024-04-12 12:27 | XMS_ITS | Encounter Summary ---
Author Organization [facility] Address [address] [place] [id number] Phone Care Team Providers Care Supervisor Force Adjustment Name Role Phone Paula Hardin MD Primary Care Provider [phone] Encounter Details Date Type Department Care Team (Late st Contact Info) Description 10/21/2016 Conversion Encounter [facility] [place] [address], [place] [phone] Social History Tobacco Use Types Packs/Day Years [...] on filedocumented in this encounter Care Teams Supervisor Force Adjustment Relationship Specialty Start Date End Date Paula Hardin MD [address] [place] [address] PCP - General 10/15/16 08/26/22 documented as of this encounter
--- OUTSIDE RECORDS SUMMARY | 2024-04-12 12:27 | XMS_ITS | Clinical Summary ---
Author Organization [facility] Address [address] [place] [address] Phone Care Team Providers Care Wet Crown Blocking Operator Name Role Phone Unavailable Primary Care Provider Unavailabl e Immunizations Immunization Administration Dates Next Due DTaP 5 09/25/2002, 0,04/01/1998, 998,1997 HPV, Quadrivalent 09/22/2010,10/16/2009 Hep A, ped/adol 09/22/2010 Hep B, ped/adol 04/01/1998,1997,1997 Hib (PRP-T) 12/22/1998, 9,01/21/1998, 998 IPV 09/25/2002 MMR 09/14/2001,09/11/1998 Meningococcal Conj (Menactra) MCV4P 10/16/2009 OPV 09/11/1998,01/21/1998,1997 Tdap 10/16/2009 Varicella 10/30/2008,09/11/1998 Family History Relation Name Status Comments Father Alive Father: Asthma Mother Alive Mother: Alive a nd well Other Family history of Seizure disorder Sister Alive Sister: ADD/ADH D Social History Tobacco Use Types Packs/Day Years Used Date Smoking Tobacco: Never Assessed Comments Unknown Sex and Gender Information Value Date Recorded Sex Assigned at Not on file Legal Sex Female 4:39 PM EDT Gender Identity Not on file Sexual Orientation Not on file Last Filed Vital Signs Vital Sign Reading Time Taken Comments Blood Pressure 102/56 09/22/2010 12:00 AM EDT Pulse - - Temperature 36.2 ??C (97.1 ??F) 02/13/2010 12:[address] Respiratory Rate - - Oxygen Saturation - - Inhaled Oxygen Concentration - - Weight 45.8 kg (101 lb) 09/22/2010 12:00 AM EDT Height 158.8 cm (5' 2.5 ) 09/22/2010 12:00 AM ED T Body Mass Index 18.18 09/22/2010 12:00 AM EDT Plan of Treatment Health Maintenance Due Date Last Done Comments Hepatitis A Vaccines (2 of 2 - 2-dose series) 03/25/2011 09/22/2010 DTaP,Tdap,and Td Vaccines (7 - Td or Tdap) 10/17/2019 10/16/2009, 09/25/2002, 03/20/1999, Additional history exists Influenza Vaccines (#1) 2023 COVID-19 Vaccine ( season) 2023 Hepatitis B Vaccines Completed 04/01/1998, 1997, 1997 HIB Vaccines Completed 12/22/1998, 03/08, 01/21/1998, Additional history exists MMR Vaccines Completed 09/14/2001, 09/11/1998 IPV Vaccines Completed 09/25/2002, 10/1998, 01/21/1998, Additional history exists Varicella Vaccines Completed 10/30/2008, 09/11/1998 Meningococcal Vaccine Aged Out 10/16/2009 No melania saran eligible based on patient's age to complete this topic HPV Vaccines Completed 09/22/2010, 10/16/2009 Men B Vaccine Aged Out No longer elig ible based on patient's age to complete this topic Pneumococcal Vaccine Aged Out No long er eligible based on patient's age to complete this topic
--- NOTE | 2024-04-12 12:30 | A.OFFVIS_ITS ---
Vital Signs 04/12/24 12:30 Height 5 ft 6 in Weight 126 lb BMI 20.3 BP 118/70 Intake Visit Reasons: [employer] Annual/Referral Supervisor [employer]ines [employer] Required: No Supervisor [employer]ines [employer] Services: Supervisor Engines [employer] Present Information Interpreted: clinical only Drafter Electrical: Drafter Electrical Present Allergies Penicillins [PENICILLINS] Allergy (Unknown, Verified 04/12/24 12:30) RASH and SWELLING, including skin and throat Medication List - Last Reconciled 04/12/24 by Susi Hardin CNM norgestimate-ethinyl estradiol 0.18/0.215/0.25 mg-35 mcg (28) (Tri-Estarylla) 1 tab PO DAILY Is last menstrual period known: Yes Last menstrual period: 03/29/24 HPI HPI [employer] Annual/Referral: Details: Patient is here she has Pap smear. She is accompanied today by her sister for support. She is on control pills that she has been getting online through company called [employer] for the last 5 years she did not think that there was any kind of online professional visit involve but she showed me the website messages with her fact there a care provider visit she had had instructions from nurse practitioner and review side effects and danger signs as well. She likes the pills she is on she does not want to change thing when she had them changed to a different generic at 1 point she had a lot of breakthrough bleeding and she does want anything change. She is involved in a relationship with her boyfriend and she has about open to testing but declines blood she will be seeing her primary care provider soon intends to ask for dermatology referral to talk about history of alopecia there younger brother has total alopecia age 2 and he also has some other health issues. She says before she became sexually active light scant about once a recalling she that she was about 62 at that which was overweight category she was BMI of 20 she and her sister requested BMI chart so see where they are at this time.. She does not have any other health concerns though she is nervous about getting Pap smear. She says she sometimes gets BV symptoms and she has adopted a habit of periodically boric acid capsules which help keep her system and then problems with malodorous discharge. 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 [employer] Cognitive needs: No Hearing needs: No Vision needs: Yes (Glasses) Female Reproductive History Menstrual Age of Menarche: 15 Duration of menses: 6-7 days Date of last menstrual period: 03/29/24 control method: pills Total pregnancies: 0 History of abnormal pap smear: No (no previous pap) Physical Exam Vital Signs: Last Vital Signs BP 118/70 04/12/24 12:30 BMI result Body Mass Index 20.3 Const General: healthy appearing, comfortable, no acute distress, well developed and alert Nutritional Appearance: average body habitus Orientation/consciousness: patient oriented x3 Limitations: no limitations HEENT Head: Yes normocephalic Neck Neck: Yes normal visual inspection Chest Chest palpation & inspection: normal inspection of the chest Breast/axilla inspection: normal inspection of the breasts and normal inspection of the axillae Breast/axilla palpation: normal palpation of the breasts and normal palpation of the axillae Resp Effort & Inspection: normal respiratory effort GI Inspection: Yes normal to inspection, No Abdominal wall edema and No distended Palpation (GI): Soft to palpation and nontender Other: Normal external exam vagina moist cervix is nulliparous smooth with ectropion cervix tightly closed nontender uterus small mobile nontender adnexa nontender good tone w Kegel. General: Yes bladder normal to palpation External Female Exam: normal external appearance and normal appearance of the urethra Speculum Exam - Vagina: normal appearance of the vagina, normal palpation and normal vaginal discharge Speculum Exam - Cervix: normal appearance of the cervix, normal palpation and nontender Bimanual exam- vagina & uterus: normal bimanual exam, normal palpation, uterine size normal, bladder normal to palpation, consistency normal, normal palpation, uterine mobility normal, uterine shape normal, No Cervical tenderness present, non-tender and no cervical motion tenderness Bimanual Exam- Adnexa, other: normal adnexae, no masses, normal and No adnexal tenderness Neuro General: patient oriented x3 Assessment & Plan Assessment & Plan (1) Cervical cancer screening: Code(s): Z12.4 - Encounter for screening for malignant neoplasm of cervix Category: Medical (2) Well woman exam with routine gynecological exam: Code(s): Z01.419 - Encounter for gynecological examination (general) (routine) without abnormal findings Category: Medical (3) Encounter for screening examination for sexually transmitted disease: Code(s): Z11.3 - Encounter for screening for infections with a predominantly sexual mode of transmission Category: Medical (4) control counseling: Code(s): Z30.09 - Encounter for other general counseling and advice on contraception Category: Medical (5) BCP ( control pills) initiation: Code(s): Z30.011 - Encounter for initial prescription of contraceptive pills Category: Medical Plan -----Discussed in this visit the following: healthy balanced diet, regular and consistent exercise, getting recommended health screens, doing the best she can for her particular health concerns, kegel exercises, pap smear screening and followup recommendations, mammography screening and SBE, normal changes in cycles in her life stage--- .-I reviewed with the patient, all of the currently common used methods of control that are available. We reviewed how they work in the body, how they are taken, common side effects, uncommon side effects, precautions, and contraindications. -Discussed also factors that influence their effectiveness and use, and womens satisfaction with the method. -Discussed how each are used, and drawbacks of each method as well. -Methods covered included: condoms, control pills, Mirena and Kyleena. Reviewed in particular that sometimes the Mirena and Kyleena can be used for a time though she has been using pills so successful last 5 years that she may not want to change as she is very careful pill taker. She is very sure that she children so that is why I discussed these long-term methods. Also reviewed her history of menses before she went on control she said that she was heavier she was younger before she became sexually active and so her periods were very different scant and almost pink lemonade colored. Reviewed the these may be related to BMI changes in the either very underweight very much affect menstrual cycle. BMI charts were shared and given. Discussed the change a different way Rebecca and Ramon it is up her if she ever wanted to change anything. Instructions on Kegels --- detail doing them to maintain pelvic support. Also reviewed typical symptoms of alopecia areata how it often starts would might be with a discussion acrylic fabricator though there are no symptoms that she is aware of. .All of the above control methods were covered in great detail including their side effect profiles and common experiences that women have and ways to mitigate against the negative experiences including attention to diet and exercise patient's with bleeding challenges that may occur her and efforts to time the initiation of the method to this start of the menstrual period. She is on the control pills at this time via the online prescriber so she is simply to change to get them covered by her insurance prescription sent to [facility] beach assistance of IT. Pap smear was done testing for gonorrhea chlamydia trichomoniasis bacterial vaginosis and yeast-- again stressed common findings of the yeast and bacterial vaginosis , that do not need treatment unless they are symptomatic. 1 yr w .net developer annual and ocp .check Orders: Orders CT NG by PCR Today N89.8 - Other specified noninflammatory disorders of vagina, Z20.2 - Contact with and (suspected) exposure to infections with a predominantly sexual mode of transmission Bacterial Vaginosis Panel Today N89.8 - Other specified noninflammatory disorders of vagina Pap Smear Today Z00.00 - Encounter for general adult medical examination without abnormal findings Medications: New norgestimate-ethinyl estradiol 0.18/0.215/0.25 mg-35 mcg (28) (Tri-Estarylla) 1 tab PO DAILY 84 tabs 4RF Coding Level of Care Code Est Pt Prev Care 18-39y(96336) Diagnoses Cervical cancer screening Z12.4 Well woman exam with routine gynecological exam Z01.419 Encounter for screening examination for sexually transmitted disease Z11.3 control counseling Z30.09 BCP ( control pills) initiation Z30.011
== END | disposition home or self-care (01) ==
PROVIDERS: PCP Internal Medicine; Visit Provider Advanced Practice Midwife
CPT/HCPCS: 99395; 99459

== ENCOUNTER 2024-04-12 13:21 | Outpatient (REF) | payer OTHER, SELFPAY ==
[2024-04-13 02:02] LABS: CT PCR NOT DETECTED (Not Detect.); NG PCR NOT DETECTED (Not Detect.)
[2024-04-13 11:23] LABS: Bacterial Vaginosis PCR NEGATIVE (Negative); Candida Group PCR NOT DETECTED (Not Detect); Candida glab krusei PCR NOT DETECTED (Not Detect); Trichomonas vaginalis PCR NOT DETECTED (Not Detect)
[2024-04-25 13:07] LABS: HPV Genotype 16 Negative (Negative); HPV Genotype 18 Negative (Negative); HPV High Risk Negative (Negative)
== END 2024-04-12 13:22 | disposition home or self-care (01) ==
LOC: HO.LNP 13:21
PROVIDERS: Visit Provider Advanced Practice Midwife
DX: Z00.00 Encounter for general adult medical examination without abnormal findings (principal); N89.8 Other specified noninflammatory disorders of vagina; Z20.2 Contact with and (suspected) exposure to infections with a predominantly sexual mode of transmission
CPT/HCPCS: 81515; 87491; 87591; 87626; 88175

== ENCOUNTER 2024-05-04 10:53 | Outpatient (AMB) | payer OTHER, SELFPAY ==
[2024-05-04 11:04] VITALS: BP 124/70; PULSE 97; TEMP 36.2; BMI 20.3
--- NOTE | 2024-05-04 11:04 | A.OFFPC_ITS ---
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 Required: No Accompanied by: Sister Allergies Penicillins [PENICILLINS] Allergy (Unknown, Verified 05/04/24 11:31) RASH and SWELLING, including skin and throat Medication List - Last Reconciled 05/04/24 by Kishan Peters MD norgestimate-ethinyl estradiol 0.18/0.215/0.25 mg-35 mcg (28) (Tri-Estarylla) 1 tab PO DAILY Tobacco use date assessed: 05/04/24 Dental Screening Dental Screen Date: 05/04/24 Did you have a dental visit in the last 12 months?: Yes Did you have a dental problem in the last 6 months where you did not have access to dental care?: No Was dental information given to patient?: Patient has dentist HPI annual PE HPI Details Patient comes in today for her annual physical examination States that she feels okay but has a few concerns that she would like to have addressed States that she felt a small lump on her right lower back area a few weeks ago and would like to know what she needs to do about this lump, which she states does not hurt Adds that her nose has been constantly dripping and draining for a few weeks now, especially when she bends over forward States that the Loratadine Rx we sent in for her last time did not help at all She denies any sore throat or any recent cough/cold symptoms She is also requesting for a referral to see dermatology about her hair, which she states has thinned out a lot over the past couple of years States that a few of her family members have very thin hair and have also had some unspecified hair loss disorder and she would like to get herself checked out earlier before she loses all of her hair She denies any headaches or dizziness Denies any chest pains, no SOB No nausea/vomiting, no abdominal pain No change in bowel habits noted Denies any acute urinary symptoms She had her yearly gynecology exam and pap smear done a few weeks ago on 04/13/2024 and she is already scheduled for her yearly exam next year in April 2025 [facility] Medical History No pertinent past medical history Surgical History No pertinent past surgical history Family History Mother Gestational diabetes Social History Housing: Apartment Alcohol intake: never Patient Tobacco Use Status: Never used Tobacco e-Cigarette/Vaping Use: Never Used Second Hand Smoke Exposure: No Substance Use Type: Marijuana service: No Current occupational status: employed 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 1. Little interest or pleasure in doing things: not at all 2. Feeling down, depressed, or hopeless: not at all 3. Trouble falling or staying asleep, or sleeping too much: not at all 4. Feeling tired or having little energy: not at all 5. Poor appetite or overeating: not at all 6. Feeling bad about yourself - or that you are a failure or have let yourself or your family down: not at all 7. Trouble concentrating on things, such as reading the newspaper or watching television: not at all 8. Moving or speaking so slowly that other people could have noticed. Or the opposite - being so fidgety or restless that you have been moving around a lot more than usual: not at all 9. Thoughts that you would be better off or of hurting yourself in some way: not at all Total score: 0 Depression Screening Interpretation: Negative Depression Screening Done: Yes 28071 - PHQ-9 Billing: Yes Source: Developed by Drs. Spenser Ace, Vannesa Gomez, Tylor Torres and colleagues, with an educational miguel from [employer]. Thrive Questionnaire Date Thrive assessed: 05/04/24 I am a: Patient What is your living situation today?: I have a steady place to live Within the past 12 months, did the food you bought not last and you didn't have the money to get more?: Never true Within the past 12 months, did you worry whether your food would run out before you got money to buy more?: Never true Do you have trouble paying for medicines?: No Do you have trouble getting transportation to medical appointments?: No Do you have trouble paying your heating and electricity bill?: No Do you have trouble taking care of your child, family member or friend?: No Do you have trouble with day-to-day activities such as bathing, preparing meals, shopping, managing finances, etc.?: No Are you currently unemployed and looking for a job?: No Are you interested in more education?: No Please select the resources that you would like help with: Housing/Nursing Home, Food, Paying for medicine and Transportation Currently or been in a relationship where the following occur: No concerns reported THRIVE Score: 0 AUDIT C Alcohol Use Questionnaire (AUDIT-C) 1. How often do you have a drink containing alcohol?: Never 3. How often do you have six or more drinks on one occasion?: Never Total Score: 0 Score Reviewed/Action Taken: Yes BRUNO-7 AMB Questionnaire BRUNO-7 Date BRUNO - 7 assessed: 05/04/24 Feeling nervous, anxious, or on edge: 0 = Not at all Not being able to stop or control worryin = Several days Worrying too much about different things: 1 = Several days Trouble relaxin = Not at all Being so restless that it is hard to sit still: 0 = Not at all Becoming easily annoyed or irritable: 2 = More than half the days Feeling afraid as if something awful might happen: 0 = Not at all Total BRUNO-7 score (0-4 normal; 5-9 mild; 10-14 moderate; 15-21 severe): 4 Source: Developed by Drs. Spenser Ace, Vannesa Gomez, Tylor Torres and colleagues, with an educational miguel from [employer]. BRUNO-7 Assessment Billing BRUNO-7 Assessment Tool: BRUNO-7 Assessment 29668 Review of Systems Const Denies chills, Denies fatigue, Denies fever(s), Denies headache(s) and Denies malaise Eyes Denies blurry vision, Denies change in vision, Denies irritation and Denies itchy eyes ENT Denies dysphagia, Denies dizziness, Denies otalgia, Denies headache(s), Denies nasal congestion, Reports nasal discharge (frequent/recurrent watery nasal drainage), Denies neck pain, Denies odynophagia, Denies sinus pain, Denies sinus pressure and Denies sore throat Card Denies chest pain, Denies rapid heart rate, Denies irregular heart rhythm, Denies palpitations and Denies dyspnea Resp Denies chest congestion, Denies cough, Denies dyspnea and Denies wheezing GI Denies abdominal pain, Denies bloating, Denies constipation, Denies dysphagia, Denies heartburn, Denies diarrhea, Denies nausea, Denies odynophagia and Denies vomiting Denies hematuria, Denies urinary frequency, Denies dysuria, Denies urinary incontinence and Denies urinary urgency Musc Denies back pain, Denies arthralgias, Denies joint swelling, Denies muscle weakness and Denies neck pain Skin/Breast Details: (+) non-tender cyst over the right flank area Denies breast pain, Denies breast mass, Denies change in pigmentation, Reports alopecia (states that her hair has thinned out a lot over the past year), Denies rash and Denies unusual bruising Neuro Denies dizziness, Denies headache(s) and Denies paresthesias Psych Denies anxiety and Denies depression Endo Denies fatigue and Denies palpitations Hector/Lymph Denies easy bruising Aller/Immun Denies itchy eyes and Denies wheezing Physical exam (Primary Care) Vital Signs: Last Vital Signs Temp 97.1 F 05/04/24 11:04 Pulse 97 05/04/24 11:04 BP 124/70 05/04/24 11:04 Oxygen Delivery Method Room Air 05/04/24 11:04 BMI result Body Mass Index 20.3 Tobacco/Smoking Status: Tobacco use Status Tobacco use date assessed 05/04/24 05/04/24 11:09 Patient Tobacco Use Status Never used Tobacco 05/04/24 11:09 e-Cigarette/Vaping Use Never Used 05/04/24 11:09 PHQ-9: PHQ-9 Score PHQ-9: Total score 0 05/04/24 11:09 Depression Screening Interpretation: Negative Thrive Assessment: Date of Thrive Assessment Date Thrive assessed 02/28/25 02/28/25 11:09 Currently or been in a relationship where the following occur: No concerns reported Const General: no acute distress, alert and awake Orientation/consciousness: patient oriented x3 HENMT Other: (+) nose ring Head: Yes normocephalic and Yes atraumatic Ears: external ears normal, TM's normal bilaterally and EAC's normal General nose exam: No nasal discharge present Face and sinus: Yes normal facial exam and Yes sinuses nontender Teeth and gingiva: dentition normal Throat: Yes posterior oropharynx normal and Yes tonsils normal (no TP conge stion) Eyes Eyelids: Yes eyelids normal Conjunctivae: conjunctivae normal Pupils: Equal, round and reactive pupils present EOM: EOMs intact bilaterally Neck Neck: Yes no lymphadenopathy and Yes supple Thyroid: Thyroid normal Resp Auscultation: clear to auscultation bilaterally, no rales and no wheezes Cardio Rate: regular rate Rhythm: regular rhythm Heart sounds: no murmurs GI Palpation (GI): Soft to palpation, nontender and No hepatosplenomegaly present Auscultation: normal bowel sounds General: Yes no CVA tenderness Back/Spine/Pelvis Back: no CVA tenderness Thoracic/Lumbar Spine: thoracic and lumbar spine normal to inspection Skin Other: (+) xavier-sized, non-tender lipoma noted over the right flank area on her lower back Rashes: no rashes Hair: general thinning Neuro General: patient oriented x3, moves all extremities, no focal motor deficits and CN's II-XI intact bilaterally Cranial nerves: Yes Equal, round and reactive pupils present Cognition (Neuro): normal cognition Gait exam (Neuro): Normal gait present Extrem General: Yes no clubbing, cyanosis or edema Coding Level of Care Code Est Pt Prev Care 18-39y(67967) Diagnoses Annual physical exam Z00.00 Nasal drainage J34.89 Lipoma of torso D17.1 Lipoma location: trunk Thinning hair L65.9 Additional Codes BRUNO-7 Assessment Billing - BRUNO-7 Assessment Tool: BRUNO-7 Assessment 80932 ([id number]) PHQ-9 - 52597 - PHQ-9 Billing: Yes ([id number]) Assessment & Plan Assessment & Plan (1) Annual physical exam: Code(s): Z00.00 - Encounter for general adult medical examination without abnormal findings Category: Medical Plan: Check labs She is up-to-date with her yearly gynecology exam and pap smear (done on 04/13/2024) (2) Nasal drainage: Code(s): J34.89 - Other specified disorders of nose and nasal sinuses Category: Medical Plan: This is likely due to rhinitis (vasomotor vs. allergic) Patient has been tried on Loratadine 10 mg QD PRN, which she states did not help at all Will start her for now on a trial of Fluticasone 50 mcg nasal spray QD PRN Per request, will also refer her to ENT for further evaluation and management (3) Lipoma: Code(s): D17.9 - Benign lipomatous neoplasm, unspecified Category: Medical Qualifiers: Lipoma location: trunk Qualified Code(s): D17.1 - Benign lipomatous neoplasm of skin and subcutaneous tissue of trunk Plan: Patient is reassured that the cyst over her right flank area is a lipoma, which is a benign lesion, and unless they start to hurt or get progressively bigger, no intervention is necessary at this time She has been advised that sometimes, they may even shrink on their own after some time She is instructed to just call for referral if this gets much bigger over time or if it starts to cause increasing pain (4) Thinning hair: Code(s): L65.9 - Nonscarring hair loss, unspecified Category: Medical Plan: Per request, will refer her to dermatology for further evaluation and management Plan To return in 1 year for her next annual physical examination Orders: Referrals Ear/Nose/Throat Referral J34.89 - Other specified disorders of nose and nasal sinuses Dermatology Referral L65.9 - Nonscarring hair loss, unspecified Medications: New fluticasone propionate 50 mcg/actuation administer into each nostril 2 sprays intranasal DAILY 30 days PRN 16 grams 5RF allergy symptoms
--- OUTSIDE RECORDS SUMMARY | 2024-05-04 12:31 | XMS_ITS | Encounter Summary ---
Author Organization [facility] Address [address] [place] [phone] Phone Care Team Providers Care Digital Strategy Manager Name Role Phone Paula Hardin MD Primary Care Provider [phone] Encounter Details Date Type Department Care Team (Late st Contact Info) Description 10/21/2016 Conversion Encounter [facility] [place] [address] [place], [place] [phone] Social History Tobacco Use Types Packs/Day Years [...] on filedocumented in this encounter Care Teams Digital Strategy Manager Relationship Specialty Start Date End Date Paula Hardin MD [address] [place] [address] PCP - General 10/15/16 08/26/22 documented as of this encounter
--- OUTSIDE RECORDS SUMMARY | 2024-05-04 12:31 | XMS_ITS | Clinical Summary ---
Author Organization [facility] Address [address] [place] [id number] Phone Care Team Providers Care Mainspring Winder And Oiler Name Role Phone Unavailable Primary Care Provider [...]
--- OUTSIDE RECORDS SUMMARY | 2024-05-04 12:31 | XMS_ITS | Encounter Summary ---
Author Organization [facility] Address [address] [place] [address] Phone Care Team Providers Care Medical Technologist Prn Name Role Phone Paula Hardin MD Primary Care Provider [phone] Encounter Details Date Type Department Care Team (Late st Contact Info) Description 05/04/2011 Documentation EM Family Medicine [address] [place] [address] Family Medicine, Physician [address] [place], [place] [phone] Social History Tobacco Use Types Packs/Day Years [...] on filedocumented in this encounter Care Teams Medical Technologist Prn Relationship Specialty Start Date End Date Paula Hardin MD [address] [place] [address] MELINA Pedroza [address] PCP - General 10/15/16 08/26/22 documented as of this encounter
== END 2024-05-04 11:48 | disposition home or self-care (01) ==
PROVIDERS: PCP Internal Medicine; Visit Provider Internal Medicine
DX: Z00.00 Encounter for general adult medical examination without abnormal findings (principal); J34.89 Other specified disorders of nose and nasal sinuses; D17.1 Benign lipomatous neoplasm of skin and subcutaneous tissue of trunk; L65.9 Nonscarring hair loss, unspecified

== ENCOUNTER → 2024-05-04 10:53 | Outpatient (BNVA) | payer OTHER, SELFPAY | PROVIDERS: PCP Internal Medicine; Visit Provider Internal Medicine | DX: Z00.00 Encounter for general adult medical examination without abnormal findings (principal); J34.89 Other specified disorders of nose and nasal sinuses; D17.1 Benign lipomatous neoplasm of skin and subcutaneous tissue of trunk; L65.9 Nonscarring hair loss, unspecified | CPT/HCPCS: 96127 ==